=== PATIENT | female | born 1970 | race Two or more races ===

== ENCOUNTER → 2016-05-26 | Outpatient (CLI) | payer OTHER ==
--- NOTE | ~2016-05-26 | MY11 ---
[facility] A Service of [facility] RADIOLOGY TEXT RESULTS PATIENT: ROHAN GORMAN LOCATION: [facility] : 72 UNIT #: [id number] AGE: [address]: ELIU STAUFFER APRN SEX: F ORDER DR: [id number] [facility] [address] [place] [place], [place] [address] [id number] O MR#: [id number] Acc #: [id number] NAME: ROHAN GORMAN : 1970 SEX: F STUDY DATE/TIME: 05/26/2016 13:37 UNIT: [facility] ROOM: STUDY DESCRIPTION: MY Mammogram Screening Dig Paulo Attending Physician: Renu Stauffer M.D. Ordering Physician: Renu Stauffer M.D. Primary Care Physician: Mo Farnsworth M.D. MEDICAL IMAGING REPORT This report is preliminary unless electronic signature is present EXAM Screening mammogram, 05/26/2016. HISTORY 45-year-old with no personal or family history of breast cancer. No current complaints. FINDINGS Routine digital screening views of both breasts were obtained. The study was reviewed with an FDA-approved CAD device. This is a baseline study. The breast parenchyma shows scattered fibroglandular densities. No masses or suspicious microcalcifications are seen. IMPRESSION Negative baseline mammogram. Routine screening in 1 year is recommended. Patients over the age of 40 are entered into a reminder system with target due date for the next mammogram. A result letter will also be sent to the patient. BIRADS: 1 Negative Dictated by... Andre Saravia Jr., M.D. THIS IS AN ELECTRONICALLY VERIFIED REPORT Andre Saravia Jr., M.D. at 05/27/2016 9:48 AM GALILEO/lety TD: 05/26/2016 18:04 [facility] A Service [facility] RADIOLOGY TEXT RESULTS PATIENT: ROHAN GORMAN LOCATION: [facility] : 72 UNIT #: [id number] AGE: [address]: ELIU STAUFFER APRN SEX: F ORDER DR: JOB #: [id number] MEDICAL IMAGING REPORT Page 1 of 1 COPY
== END | disposition home or self-care (01) ==
LOC: CWCC 13:01
DX: Z12.31 Encounter for screening mammogram for malignant neoplasm of breast (principal)
CPT/HCPCS: G0202